=== PATIENT | male | born 1950 | race Caucasian/White ===

== ENCOUNTER 2018-02-18 12:18 | Inpatient (IN) | payer MEDICARE, OTHER ==
[~2018-02-18] VITALS: Ht 175.3 cm; Wt 86.0 kg
[~2018-02-18 12:18] MED LIST: ASPI81TA52 PO; BUPR300T53 PO; NITR0.4T48 SL
[2018-02-18 12:58] LABS: PARTIAL THROMBOPLASTIN TIME 26 SECONDS (22-32); PROTHROMBIN TIME 10.6 SECONDS (9.0-12.0)
[2018-02-18 13:00] LABS: BASOPHILS % (AUTO) 1.8 % (0-1); EOSINOPHILS # (AUTO) 0.1 X10'3 (0-0.9); EOSINOPHILS % (AUTO) 1.5 % (0-6); HEMATOCRIT 48.4 % (42.0-52.0); HEMOGLOBIN 16.3 g/dl (14.0-17.9); LYMPHOCYTES # (AUTO) 1.4 X10'3 (1.1-4.8); LYMPHOCYTES % (AUTO) 19.7 % (21-51); MEAN CORPUSCULAR HEMOGLOBIN 30.8 PG (27.0-31.0); MEAN CORPUSCULAR HGB CONC 33.7 % (33.0-36.5); MEAN CORPUSCULAR VOLUME 91.3 FL (78-98); MEAN PLATELET VOLUME 9.1 FL (7.4-10.4); MONOCYTES # (AUTO) 0.5 X10'3 (0-0.9); MONOCYTES % (AUTO) 6.3 % (2-12); NEUTROPHILS # (AUTO) 5.3 X10'3 (1.8-7.7); NEUTROPHILS % (AUTO) 70.7 % (42-75); PLATELET COUNT 208 X10'3 (140-440); RED CELL DISTRIBUTION WIDTH 13.5 % (11.5-14.5)
[2018-02-18 13:01] LABS: BASOPHILS # (AUTO) 0.1 X10'3 (0-0.2); WHITE BLOOD COUNT 7.4 X10'3 (4.5-11.0)
[2018-02-18 13:04] LABS: ALANINE AMINOTRANSFERASE 58 U/L (12-78); ALBUMIN/GLOBULIN RATIO 1.4 (1.1-1.5); ALKALINE PHOSPHATASE 97 IU/L (46-116); ANION GAP 9 (8-16); ASPARTATE AMINO TRANSFERASE 34 U/L (10-37); BILIRUBIN,TOTAL 0.3 MG/DL (0.1-1.0); BLOOD UREA NITROGEN 23 MG/DL (7-18); BUN/CREATININE RATIO 19.8 (5.4-32.0); CALCIUM 8.8 MG/DL (8.5-10.1); CHLORIDE 106 MMOL/L (99-107); CREATININE 1.16 MG/DL (0.60-1.10); GLUCOSE 106 MG/DL (70-104); POTASSIUM 4.3 MMOL/L (3.5-5.1); SODIUM 142 MMOL/L (135-145); TOTAL CARBON DIOXIDE 27.2 MMOL/L (24-32); TOTAL PROTEIN 6.8 G/DL (6.4-8.2); eGFR 63 ML/MIN
[2018-02-18 13:07] LABS: TROPONIN I < 0.04 NG/ML (0.0-0.05)
[2018-02-18] MEDS ORDERED: normal saline 1000ML IV soln IVB ONE (13:30)
[2018-02-18] MEDS ORDERED: acetaminophen 325mg tablet PO PRN ×2 (17:55)
[2018-02-18] MEDS ORDERED: mag hydrox/Alum hydrox/simeth 30ml oral suspension PO PRN (17:55)
[2018-02-18] MEDS ORDERED: magnesium hydroxide 30ml (MOM) UD suspension PO PRN (17:55)
[2018-02-18] MEDS ORDERED: nitroGLYCERIN 0.4mg SUBLingual tab SL PRN (18:05)
[2018-02-18 19:05] LABS: CLARITY,URINE CLEAR (Clear); COLOR,URINE YELLOW (Yellow); GLUCOSE, URINE NEGATIVE (Neg); KETONES,URINE 15 mg/dl (Neg); LEUKOCYTE ESTERASE ,URINE NEGATIVE (Neg); NITRITES, URINE NEGATIVE (Neg); OCCULT BLOOD,URINE TRACE-INTACT (Neg); PH,URINE 5.5 (4.8-8.0); PROTEIN,URINE NEGATIVE (Neg); UROBILINOGEN,URINE 0.2 E.U/dL (0.2-1.0)
[2018-02-18 19:06] LABS: URINE AMPHETAMINE SCREEN NEGATIVE (Neg); URINE BARBITUATE SCREEN NEGATIVE (Neg); URINE BENZODIAZEPINES SCREEN NEGATIVE (Neg); URINE CANNABINOID SCREEN NEGATIVE (Neg); URINE COCAINE SCREEN NEGATIVE (Neg); URINE METHADONE SCREEN NEGATIVE (Neg); URINE OPIATE SCREEN NEGATIVE (Neg); URINE PHENCYCLIDINE SCREEN NEGATIVE (Neg)
[2018-02-18 19:09] LABS: UA COLLECTION TYPE CLN CATCH MIDSTREAM
[2018-02-18 19:38] LABS: BACTERIA,URINE FEW /HPF (Neg); RBC,URINE 0-2 /HPF (0-2); SQUAMOUS EPITHELIAL CELL,UR FEW /LPF (FEW); WBC,URINE 0-4 /HPF (0-4)
[2018-02-18] MEDS: heparin, porcine 5000 units/ml vial SQ SCH (20:00)
[2018-02-18 20:25] VITALS: BP 113/69
[2018-02-18 22:00] VITALS: BP 114/73
[2018-02-19] VITALS (7 sets, daily range): BP systolic 91–127; BP diastolic 52–79
[2018-02-19 08:00] LABS: ALBUMIN 3.7 G/DL (3.4-5.0); ANION GAP 10 (8-16); BLOOD UREA NITROGEN 23 MG/DL (7-18); BUN/CREATININE RATIO 19.8 (5.4-32.0); CALCIUM 8.5 MG/DL (8.5-10.1); CHLORIDE 106 MMOL/L (99-107); CREATININE 1.16 MG/DL (0.60-1.10); GLUCOSE 111 MG/DL (70-104); POTASSIUM 4.4 MMOL/L (3.5-5.1); SODIUM 141 MMOL/L (135-145); TOTAL CARBON DIOXIDE 25.3 MMOL/L (24-32); eGFR 63 ML/MIN
[2018-02-19] MEDS: buPROPion SR 150mg tablet PO SCH ×2 (08:44→19:06)
[2018-02-19] MEDS: aspirin 81mg tablet.DR PO SCH (08:44)
[2018-02-19] MEDS: heparin, porcine 5000 units/ml vial SQ SCH ×2 (08:44→19:06)
[2018-02-19] MEDS: normal saline 1000ml 1,000 ML IV SCH (16:07)
[2018-02-20] MEDS: normal saline 1000ml 1,000 ML IV SCH ×2 (01:10→11:10)
[2018-02-20 06:00] VITALS: BP 94/58
[2018-02-20] MEDS: heparin, porcine 5000 units/ml vial SQ SCH (08:00)
[2018-02-20] MEDS: buPROPion SR 150mg tablet PO SCH (08:19)
[2018-02-20] MEDS: aspirin 81mg tablet.DR PO SCH (08:19)
[2018-02-20 10:00] VITALS: BP 104/72
[2018-02-20 10:17] LABS: ALBUMIN 3.9 G/DL (3.4-5.0); ANION GAP 9 (8-16); BLOOD UREA NITROGEN 19 MG/DL (7-18); BUN/CREATININE RATIO 15.7 (5.4-32.0); CALCIUM 8.5 MG/DL (8.5-10.1); CHLORIDE 105 MMOL/L (99-107); CREATININE 1.21 MG/DL (0.60-1.10); GLUCOSE 77 MG/DL (70-104); POTASSIUM 3.9 MMOL/L (3.5-5.1); SODIUM 142 MMOL/L (135-145); TOTAL CARBON DIOXIDE 28.5 MMOL/L (24-32); eGFR 60 ML/MIN
[2018-02-20] MEDS ORDERED: ASPI-1071 PO (13:52)
== END 2018-02-20 14:20 | disposition home or self-care (01) | DRG 682 ==
LOC: ER 12:18 → ED HOLD 17:55 → ORTHO 4S 20:20
PROVIDERS: ADMIT Hospitalist; ATTEND Family Medicine
PROC: 4A10X4Z Monitoring of Central Nervous Electrical Activity, External Approach (ICD-10-PCS; principal; 2018-02-20)
DX: N17.9 Acute kidney failure, unspecified (principal); I63.9 Cerebral infarction, unspecified; G45.9 Transient cerebral ischemic attack, unspecified; G93.49 Other encephalopathy; G45.4 Transient global amnesia; E86.0 Dehydration; R07.9 Chest pain, unspecified; G40.909 Epilepsy, unspecified, not intractable, without status epilepticus; Z86.79 Personal history of other diseases of the circulatory system; Z79.899 Other long term (current) drug therapy; Z79.82 Long term (current) use of aspirin
CPT/HCPCS: 36415; 70450; 70544; 70551; 71045; 80048; 80053; 80305; 81001; 82140; 82607; 82948; 84443; 84484; 85025; 85610; 85730; 87070; 93005; 95816; 96360; 99285; G0378; J1644; J7030